=== PATIENT | female | born 1940 | race Caucasian/White ===

== ENCOUNTER 2017-03-29 08:33 | Outpatient (CLI) | END 2017-03-29 08:34 | disposition home or self-care (01) | LOC: AMBL 08:33 | PROVIDERS: ATTEND Internal Medicine | DX: M25.561 Pain in right knee (principal); M79.89 Other specified soft tissue disorders ==

== ENCOUNTER 2018-12-27 15:45 | Emergency (ER) | payer OTHER ==
[2018-12-27 15:52] VITALS: BP 157/68; TEMP 98.9; BMI 22.6
--- NOTE | 2018-12-27 17:14 | ED.PDOC ---
General ED Provider: Dr. LISA GARCIA Chief Complaint: Finger Laceration Stated Complaint: LACERATION OF THE FINGER LEFT MIDDLE FINGER Time Seen by Physician: 16:00 (COKING FOR A GOOD CAUSE CUT MIDDLE FINGER WITH A KNIFE ON COUMADING BLEEDING DEEPTHI HER WORRIED) Mode of Arrival: Walk-In Information Source: Patient Exam Limitations: No limitations Primary Care Provider: ALEXA TOLENTINO Nursing and Triage Documentation Reviewed and Agree: Yes Does patient meet sepsis criteria?: No System Inflammatory Response Syndrome: Not Applicable Sepsis Protocol: For patient's 13 years and over: Temp is 96.8 and below OR 101 and greater Pulse >90 BPM Resp >20/minute Acutely Altered Mental Status Are patient's symptoms suggestive of a new infection, such as: -Pneumonia -Skin, Soft Tissue -Endocarditis -UTI -Bone, Joint Infection -Implantable Device -Acute Abdominal Infection -Wound Infection -Meningitis -Blood Stream Catheter Infection -Unknown Skin Complaint Exam - Lac/Torso/Upper Ext. Complaint/Exam Location of Injury: Left (MIDDLE FINGER ) Mechanism of Injury: Laceration Onset/Duration: TODAY 1 HR AGO Symptoms Are: Resolved Initial Severity: Mild Current Severity: Mild Aggravating: None Alleviating: None Associated Signs and Symptoms: Denies: Fever, Chills, Erythema, Numbness, Tingling Related History: Reports: Anticoagulant use Differential Diagnoses: Laceration Review of Systems - Review Of Systems Constitutional: Reports: No symptoms Eyes: Reports: No symptoms Ears, Nose, Mouth, Throat: Reports: No symptoms Respiratory: Reports: No symptoms Cardiac: Reports: No symptoms GI: Reports: No symptoms : Reports: No symptoms Musculoskeletal: Reports: No symptoms Skin: Reports: Other (LACERATION LEFT MIDDLE FINGER ) Neurological: Reports: No symptoms Endocrine: Reports: No symptoms Hematologic/Lymphatic: Reports: No symptoms All Other Systems: Reviewed and Negative Past Medical History - Past Medical History Previously Healthy: Yes Endocrine: Reports: Hypothyroid Cardiovascular: Reports: None Respiratory: Reports: None Hematological: Reports: None Gastrointestinal: Reports: None Genitourinary: Reports: None Neuro/Psych: Reports: None Musculoskeletal: Reports: None Cancer: Reports: None Last Menstrual Period: hysterectomy - Surgical History General Surgical History: Reports: None - Family History Family History: Reports: None - Social History Smoking Status: Never smoker Hx Substance Use: No Alcohol Screening: None - Immunizations Tetanus Shot up to Date: No Physical Exam - Physical Exam Appearance: Well-appearing, No pain distress, Well-nourished Eyes: ALFONSO, EOMI, Conjunctiva clear ENT: Ears normal, Nose normal, Oropharynx normal Respiratory: Airway patent, Breath sounds clear, Breath sounds equal, Respirations nonlabored Cardiovascular: RRR, Pulses normal, No rub, No murmur GI/: Soft, Nontender, No masses, Bowel sounds normal, No Organomegaly Musculoskeletal: Normal strength, ROM intact, No edema, No calf tenderness Skin: Warm, Dry (2MM LACERATION DISTAL LEFT MIDDLE FINGER NO F/B) Neurological: Sensation intact, Motor intact, Reflexes intact, Cranial nerves intact, Alert, Oriented Psychiatric: Affect appropriate, Mood appropriate Critical Care Note - Critical Care Note Total Time (mins): 0 Course - Course Orders, Labs, Meds: Lab Review 12/27/18 16:23 PT 25.8 H INR 2.65 APTT 38.7 Orders Category Date Time Status PARTIAL THROMBOPLASTIN TIME Stat LAB 12/27/18 16:23 Completed PT WITH INR Stat LAB 12/27/18 16:23 Completed Vital Signs: Temp Pulse Resp BP Pulse Ox 12/27/18 15:45 98.9 F 77 20 157/68 H 96 Departure - Departure Time of Disposition: 17:14 Disposition: HOME SELF-CARE Discharge Problem: Laceration of finger Instructions: Laceration (ED) Condition: Good Pt referred to PMD for follow-up: Yes IPMP verified?: No Allergies/Adverse Reactions: Allergies codeine Adverse Reaction (Verified 12/27/18 15:54) hydrocodone Adverse Reaction (Verified 12/27/18 15:54) levofloxacin [From Levaquin] Adverse Reaction (Verified 12/27/18 15:54) metronidazole [From Flagyl] Adverse Reaction (Verified 12/27/18 15:54) Home Medications: Ambulatory Orders Dicyclomine HCl [Bentyl] 10 mg PO DAILY 12/27/18 Levothyroxine Sodium [Synthroid] 75 mcg PO EVERY OTHER DAY 12/27/18 Levothyroxine Sodium [Synthroid] 88 mcg PO EVERY OTHER DAY 12/27/18 Metoprolol Succinate [Toprol Xl] 50 mg PO DAILY 12/27/18 Warfarin Sodium [Coumadin] 5 mg PO DAILY 12/27/18
== END 2018-12-27 17:19 | disposition home or self-care (01) ==
LOC: ED 15:45
DX: S61.213A Laceration without foreign body of left middle finger without damage to nail, initial encounter (principal)
CPT/HCPCS: 36415; 85610; 85730; 99282